=== PATIENT | female | born 1995 | race Caucasian/White ===

== ENCOUNTER 2017-01-25 19:45 | Emergency (ER) | payer BC, OTHER ==
[~2017-01-25] VITALS: Ht 157.4 cm; Wt 63.5 kg
[~2017-01-25 19:45] MED LIST: AMOXICILLIN500 M2 PO; AMOXIL500 MG PO; AUGMENTIN 875875 MG PO; BACTRIM DS 8001 TA1 PO; BIRTH CONTROL1 EAC1 PO; BIRTH CONTROL1 EACH; CIPRO250 MG PO; CIPRO500 MG PO; CLARITIN-D 12 H1 TAB PO; CLEOCIN VAGINA100 MG VG; FLAGYL500 MG PO; HYDROCODONE BIT1 T11 PO; IMPLANON68 MG ID; LOTRIMIN 1%15 GM PO; MACROBID100 M1 PO; METROGEL V; MOTRIN600 MG PO; NAPROSYN500 MG PO; NKHM; OCEAN NASAL SPR45 ML NAS; PRENATAL TABS1 TAB PO; PRENATAL1 TA1 PO; PRENATAL1 TA7 PO; PYRIDIUM200 MG PO; SALINE MIST 4545 ML NAS; ZITHROMAX Z PA250 MG PO; ZOFRAN ODT4 MG SL; ZOFRAN4 MG PO
[2017-01-25 20:26] LABS: BILIRUBIN NEGATIVE (NEGATIVE); BLOOD 3+ (NEGATIVE); CLARITY SL CLOUDY (CLEAR); COLOR YELLOW (YELLOW); GLUCOSE NEGATIVE (NEGATIVE); KETONE NEGATIVE (NEGATIVE); LEUKO ESTERASE NEGATIVE (NEGATIVE); NITRITE NEGATIVE (NEGATIVE); PROTEIN NEGATIVE (NEGATIVE); UROBILINOGEN 0.2 E.U./dl (0.2-1.0)
[2017-01-25 20:34] LABS: BACTERIA 4+; MUCOUS TRACE; RBC 0-2 rbc/hpf (0-2); URINE REFLEX COMMENT YES (NO)
[2017-01-25] MEDS ORDERED: FLAGYL500 MG PO (20:54)
== END 2017-01-25 20:58 | disposition home or self-care (01) ==
LOC: ED 19:45
PROVIDERS: Nurse Practitioner Family
DX: N76.0 Acute vaginitis (principal)

== ENCOUNTER 2017-06-18 04:49 | Emergency (ER) | payer BC, OTHER ==
[~2017-06-18] VITALS: Ht 157.4 cm; Wt 65.8 kg
[2017-06-18 05:23] LABS: BASO % 0.4 % (0.0-1.0); EOS # 0.2 10*3/uL (0.0-0.4); EOS % 2.2 % (1.0-4.0); HEMATOCRIT 34.3 % (37.0-47.0); HEMOGLOBIN 12.2 g/dl (12.0-16.0); LYMPH # 4.4 10*3/uL (1.3-4.4); MEAN CELL VOLUME 90.7 fl (81.0-99.0); MEAN CORPUSCULAR HGB 32.3 pg (27.0-31.0); MEAN CORPUSCULAR HGB CONC 35.6 g/dl (33.0-37.0); MONO # 0.6 10*3/uL (0.1-1.0); MONO % 5.8 % (3.0-9.0); NEUT % 48.5 % (47.0-73.0); PLATELET COUNT AUTOMATED 270 10*3/uL (130-400); RED BLOOD COUNT 3.78 10*6/uL (4.10-5.10); RED CELL DISTRI WIDTH 11.6 % (0-14.5); WHITE BLOOD COUNT 10.3 10*3/uL (4.8-10.8)
[2017-06-18 05:40] LABS: ALBUMIN 3.8 gm/dl (3.1-4.5); ALKALINE PHOSPHATASE 50 U/L (45-117); BUN 16 mg/dl (7-24); CHLORIDE 105 mmol/L (98-107); LIPASE 162 U/L (73-393); MAGNESIUM 1.9 mg/dL (1.5-2.1); POTASSIUM 4.1 mmol/L (3.5-5.1); SGOT/AST 17 IU/L (3-35); SGPT/ALT 21 U/L (12-78); SODIUM 137 mmol/L (136-145)
[2017-06-18 05:42] LABS: BILIRUBIN NEGATIVE (NEGATIVE); BLOOD 3+ (NEGATIVE); CLARITY CLEAR (CLEAR); COLOR YELLOW (YELLOW); GLUCOSE NEGATIVE (NEGATIVE); KETONE NEGATIVE (NEGATIVE); LEUKO ESTERASE NEGATIVE (NEGATIVE); NITRITE NEGATIVE (NEGATIVE); UROBILINOGEN 0.2 E.U./dl (0.2-1.0)
[2017-06-18 05:43] LABS: TROPONIN I < 0.015 ng/ml (<0.045)
[2017-06-18 05:53] LABS: URINE AMPHETAMINES < 1000 (1000ng/ml); URINE BARBITURATES < 200 (200ng/ml); URINE BENZODIAZEPINES < 200 (200ng/ml); URINE CANNABINOIDS (THC) < 50 (50ng/ml); URINE COCAINE < 300 (300ng/ml); URINE METHADONE < 300 (300ng/ml); URINE OPIATES < 300 (300ng/ml)
[2017-06-18 06:04] LABS: URINE PHENCYCLIDINE < 25 (25ng/ml)
== END 2017-06-18 06:21 | disposition home or self-care (01) ==
LOC: ED 04:49
PROVIDERS: Student in an Organized Health Care Education/Training Program
DX: R06.02 Shortness of breath (principal); R00.2 Palpitations

== ENCOUNTER 2019-08-08 00:24 | Emergency (ER) | payer OTHER ==
[~2019-08-08] VITALS: Ht 157.4 cm; Wt 68.0 kg
[~2019-08-08 00:24] MED LIST changes: +AMINOPHYLLIN200 MG PO; +NEXPLANON68 M2 SQ; +SUBOXONE 8 MG-1 EACH SL
[2019-08-08 01:08] LABS: BILIRUBIN NEGATIVE (NEGATIVE); BLOOD NEGATIVE (NEGATIVE); CLARITY CLEAR (CLEAR); COLOR YELLOW (YELLOW); GLUCOSE NEGATIVE (NEGATIVE); KETONE NEGATIVE (NEGATIVE); LEUKO ESTERASE NEGATIVE (NEGATIVE); NITRITE NEGATIVE (NEGATIVE); UROBILINOGEN 0.2 E.U./dl (0.2-1.0)
[2019-08-08 01:19] LABS: RBC 0-2 rbc/hpf (0-2); WBC 0-2 wbc/hpf (0-5)
== END 2019-08-08 01:46 | disposition home or self-care (01) ==
LOC: ED 00:24
PROVIDERS: Physician Assistant
DX: N89.8 Other specified noninflammatory disorders of vagina (principal); Z20.2 Contact with and (suspected) exposure to infections with a predominantly sexual mode of transmission; Z32.02 Encounter for pregnancy test, result negative; Z79.899 Other long term (current) drug therapy

== ENCOUNTER → 2021-02-17 | Outpatient (CLI) | payer OTHER ==
[2021-02-17 16:47] LABS: BASO # 0.1 10*3/uL (0.0-0.1); BASO % 0.7 % (0.0-1.0); EOS # 0.2 10*3/uL (0.0-0.4); EOS % 2.8 % (1.0-4.0); HEMATOCRIT 37.9 % (37.0-47.0); LYMPH # 2.6 10*3/uL (1.3-4.4); LYMPH % 38.4 % (27.0-41.0); MEAN CELL VOLUME 90.2 fl (81.0-99.0); MEAN CORPUSCULAR HGB 32.1 pg (27.0-31.0); MEAN CORPUSCULAR HGB CONC 35.6 g/dl (33.0-37.0); MEAN PLATELET VOLUME 10.3 fl (9.6-12.3); MONO # 0.5 10*3/uL (0.1-1.0); MONO % 7.8 % (3.0-9.0); NEUT # 3.4 10*3/uL (2.3-7.9); PLATELET COUNT AUTOMATED 341 10*3/uL (130-400); RED CELL DISTRI WIDTH 11.8 % (0-14.5); WHITE BLOOD COUNT 6.9 10*3/uL (4.8-10.8)
[2021-02-17 16:59] LABS: ACT PARTIAL THROMBO TIME 25.6 SECONDS (20.0-32.1)
[2021-02-17 18:04] LABS: BUN 11 mg/dl (7-24); CHLORIDE 106 mmol/L (98-107); POTASSIUM 3.8 mmol/L (3.5-5.1); SODIUM 139 mmol/L (136-145)
[2021-02-17 18:12] LABS: ALBUMIN 4.2 gm/dl (3.1-4.5); ALKALINE PHOSPHATASE 47 U/L (45-117); CREATININE 0.71 mg/dL (0.55-1.02); SGOT/AST 13 IU/L (3-35); SGPT/ALT 23 U/L (12-78); TOTAL PROTEIN 7.6 gm/dL (6.4-8.2)
[2021-02-17 18:15] LABS: BETA-HCG, QUANT < 1.0 mIU/mL (1-3)
[2021-02-18 08:08] LABS: HEP B CORE AB, IGM Negative (Negative); HEPATITIS B SURFACE AG Negative (Negative); HEPATITIS C VIRUS ANTIBODY <0.1 s/co (0.0-0.9)
== END | disposition home or self-care (01) ==
LOC: LAB 16:17
PROVIDERS: ATTEND Family Medicine
DX: Z01.812 Encounter for preprocedural laboratory examination (principal)

== ENCOUNTER 2021-11-30 20:21 | Emergency (ER) | payer OTHER ==
[~2021-11-30] VITALS: Wt 72.6 kg
[2021-11-30] MEDS ORDERED: IBUPROFEN600 MG PO (22:25)
[2021-11-30] MEDS ORDERED: TOBRAMYCIN 5 ML5 M1 OPH (22:25)
== END 2021-11-30 23:29 | disposition home or self-care (01) ==
LOC: ED 20:21
DX: H16.9 Unspecified keratitis (principal)